=== PATIENT | male | born 1970 | race Hispanic/Latino ===

== ENCOUNTER 2017-11-21 18:40 | Inpatient (IN) | payer OTHER ==
[~2017-11-21] VITALS: Ht 182.9 cm; Wt 137.6 kg
[2017-11-21] MEDS ORDERED: SODIUM CHLORIDE 0.9% 100 ML IV ONE (19:19)
[2017-11-21 19:34] LABS: BASOPHILS % (AUTO) 0.8 % (0.0-5.0); EOSINOPHILS % (AUTO) 1.4 % (0.0-8.0); LYMPHOCYTES % (AUTO) 14.8 % (21.0-51.0); MEAN CORPUSCULAR HEMOGLOBIN 32.8 pg (27.0-33.0); MEAN CORPUSCULAR HGB CONC 35.7 g/dL (32.0-36.0); MEAN CORPUSCULAR VOLUME 91.8 fL (79-99); MONOCYTES % (AUTO) 6.7 % (3.0-13.0); NEUTROPHILS % (AUTO) 76.3 % (40.0-77.0); NUCLEATED RED BLOOD CELLS 0.1 % (0.0-0.19); PLATELET COUNT (AUTO) 75 K/uL (130-400); RED BLOOD CELL COUNT(AUTO) 4.47 MIL/uL (4.50-6.20); RED CELL DISTRIBUTION WIDTH 14.2 % (11.0-15.5); WHITE BLOOD COUNT (AUTO) 6.6 K/uL (4.8-10.8)
[2017-11-21 19:43] LABS: INR 1.08 (0.85-1.15); PARTIAL THROMBOPLASTIN TIME 27.8 SEC (26.3-35.5); PROTHROMBIN TIME 11.3 SEC (9.6-11.6)
[2017-11-21 19:45] LABS: CREATININE 1.1 mg/dL (0.5-1.5); POTASSIUM 4.1 mmol/L (3.5-5.1)
[2017-11-21 19:50] LABS: ALBUMIN 3.1 g/dL (3.5-5.0); BILIRUBIN,TOTAL 1.6 mg/dL (0.2-1.0); TOTAL PROTEIN, SERUM 7.5 g/dL (6.0-8.3)
[2017-11-21] MEDS ORDERED: OCTREOTIDE ACETATE 1,000 MCG in SODIUM CHLORIDE 0.9% 95 ML IV SCH ×2 (20:00→23:30)
[2017-11-21 22:21] LABS: BILIRUBIN,URINE Negative (NEGATIVE); COLOR,URINE Yellow (YELLOW); GLUCOSE, URINE (UA) Negative (NEGATIVE); KETONES,URINE Negative (NEGATIVE); LEUKOCYTE ESTERASE ,URINE Negative (NEGATIVE); NITRATE,URINE Negative (NEGATIVE); OCCULT BLOOD,URINE Negative (NEGATIVE); PROTEIN,URINE Negative (NEGATIVE); UROBILINOGEN,URINE 0.2 mg/dL (0.2-1.0)
[2017-11-21 22:23] LABS: APPEARANCE,URINE CLEAR (CLEAR)
[2017-11-21 22:31] LABS: AMPHET/METH SCREEN,URINE NEGATIVE (NEGATIVE); BARBITURATE SCREEN, URINE NEGATIVE (NEGATIVE); BENZODIAZEPINES SCREEN,URINE NEGATIVE (NEGATIVE); CANNABINOID SCREEN,URINE NEGATIVE (NEGATIVE); COCAINE SCREEN,URINE NEGATIVE (NEGATIVE); OPIATE SCREEN,URINE NEGATIVE (NEGATIVE); PHENCYCLIDINE SCREEN,URINE NEGATIVE (NEGATIVE)
[2017-11-21 23:15] VITALS: BP 127/72
[2017-11-21] MEDS ORDERED: PANTOPRAZOLE SODIUM 80 MG in SODIUM CHLORIDE 0.9% 100 ML IV SCH (23:30)
[2017-11-21] MEDS ORDERED: LACTATED RINGERS 1000ML 1,000 ML IV ONE (23:35)
[2017-11-21] MEDS: PANTOPRAZOLE SODIUM 80 MG in NS 100ML IVP SCH (23:45)
[2017-11-22] VITALS (21 sets, daily range): BP systolic 104–140; BP diastolic 53–87
[2017-11-22] MEDS: PANTOPRAZOLE SODIUM 80 MG in NS 100ML IVP SCH ×2 (05:10→19:59)
[2017-11-22] MEDS: LACTATED RINGERS 1000ML 1,000 ML IV SCH ×3 (06:00→20:06)
[2017-11-22] MEDS ORDERED: ONDANSETRON HCL 4 MG/2 ML VIAL IVP PRN (06:00)
[2017-11-22 06:59] LABS: HEMATOCRIT 36.8 % (42-54); MEAN CORPUSCULAR HGB CONC 36.3 g/dL (32.0-36.0); MEAN CORPUSCULAR VOLUME 90.7 fL (79-99); PLATELET COUNT (AUTO) 66 K/uL (130-400); RED BLOOD CELL COUNT(AUTO) 4.06 MIL/uL (4.50-6.20); RED CELL DISTRIBUTION WIDTH 14.1 % (11.0-15.5); WHITE BLOOD COUNT (AUTO) 5.1 K/uL (4.8-10.8)
[2017-11-22 07:16] LABS: ALBUMIN 2.7 g/dL (3.5-5.0); BILIRUBIN,DIRECT 0.3 mg/dL (0.0-0.3); BILIRUBIN,TOTAL 1.1 mg/dL (0.2-1.0); CREATININE 0.8 mg/dL (0.5-1.5); TOTAL PROTEIN, SERUM 6.6 g/dL (6.0-8.3)
[2017-11-22 08:48] LABS: PLATELET MORPHOLOGY COMMENT DECREASED
[2017-11-22] MEDS ORDERED: AZITHROMYCIN 500MG+NS 250ML 250 ML IV SCH (11:02)
[2017-11-22] MEDS ORDERED: AZITHROMYCIN 500MG+NS 250ML 250 ML IV ONE (11:07)
[2017-11-22] MEDS ORDERED: MEPERIDINE-PF 50 MG/ML SYG ONE (13:25)
[2017-11-22] MEDS ORDERED: MIDAZOLAM HCL 1 MG/ML 2ML VIAL ONE (13:25)
[2017-11-22] MEDS ORDERED: COMPOUND IV REFRIGERATED 1 EACH IVSOLN MISC PRN (19:00)
[2017-11-22] MEDS: PROPRANOLOL HCL 10 MG TAB PO SCH (19:59)
[2017-11-22] MEDS: LACTULOSE 20 GM/30 ML UDCUP PO SCH (19:59)
[2017-11-23] MEDS: PROPRANOLOL HCL 10 MG TAB PO SCH ×3 (03:21→11:10)
[2017-11-23 03:51] VITALS: BP 136/80
[2017-11-23 06:39] LABS: HEMATOCRIT 33.6 % (42-54); MEAN CORPUSCULAR HEMOGLOBIN 33.2 pg (27.0-33.0); MEAN CORPUSCULAR VOLUME 92.3 fL (79-99); NUCLEATED RED BLOOD CELLS 0.1 % (0.0-0.19); PLATELET COUNT (AUTO) 68 K/uL (130-400); RED BLOOD CELL COUNT(AUTO) 3.64 MIL/uL (4.50-6.20); RED CELL DISTRIBUTION WIDTH 14.1 % (11.0-15.5)
[2017-11-23 06:49] LABS: CREATININE 0.8 mg/dL (0.5-1.5); MAGNESIUM 1.8 mg/dL (1.80-2.40); POTASSIUM 4.2 mmol/L (3.5-5.1)
[2017-11-23 07:00] VITALS: BP 115/69
[2017-11-23 07:03] LABS: INR 1.09 (0.85-1.15); PARTIAL THROMBOPLASTIN TIME 29.9 SEC (26.3-35.5); PROTHROMBIN TIME 11.4 SEC (9.6-11.6)
[2017-11-23] MEDS ORDERED: CEFTRIAXONE SODIUM 1 GM IVP SCH (09:00)
[2017-11-23] MEDS ORDERED: CEFTRIAXONE 1GM/D5W 50ML 50 ML IV SCH (09:00)
[2017-11-23] MEDS: LACTATED RINGERS 1000ML 1,000 ML IV SCH (09:03)
[2017-11-23] MEDS: LACTULOSE 20 GM/30 ML UDCUP PO SCH (09:03)
[2017-11-23] MEDS: PANTOPRAZOLE SODIUM 80 MG in NS 100ML IVP SCH (09:05)
[2017-11-23 11:00] VITALS: BP 128/72
[2017-11-23] MEDS ORDERED: PANTOPRAZOLE SODIUM 40 MG TABLET.DR PO ONE (11:02)
[2017-11-23 16:00] VITALS: BP 135/74
[2017-11-23] MEDS ORDERED: LACT PO (16:29)
[2017-11-23] MEDS ORDERED: PROP10TA72 PO (16:29)
[2017-11-23] MEDS ORDERED: PANT40TA PO (16:29)
== END 2017-11-23 18:27 | disposition home or self-care (01) | DRG 369 ==
LOC: EDH 18:40 → EDHIP 18:41 → OBSVTOIN 18:41 → 3CH 22:27
PROVIDERS: ADMIT Family Medicine; ATTEND Family Medicine
PROC: 06L38CZ Occlusion of Esophageal Vein with Extraluminal Device, Via Natural or Artificial Opening Endoscopic (ICD-10-PCS; principal; 2017-11-22)
DX: I85.01 Esophageal varices with bleeding (principal); D68.9 Coagulation defect, unspecified; K76.6 Portal hypertension; E66.01 Morbid (severe) obesity due to excess calories; Z68.41 Body mass index [BMI] 40.0-44.9, adult; D62 Acute posthemorrhagic anemia; B15.9 Hepatitis A without hepatic coma; K70.30 Alcoholic cirrhosis of liver without ascites; E11.9 Type 2 diabetes mellitus without complications; E86.0 Dehydration; I10 Essential (primary) hypertension; D73.1 Hypersplenism; K27.9 Peptic ulcer, site unspecified, unspecified as acute or chronic, without hemorrhage or perforation; K31.89 Other diseases of stomach and duodenum; K29.00 Acute gastritis without bleeding; F10.20 Alcohol dependence, uncomplicated; Z83.3 Family history of diabetes mellitus
CPT/HCPCS: 36415; 76700; 80048; 80053; 80076; 80305; 81003; 82140; 82270; 83735; 85025; 85027; 85610; 85730; 86850; 86900; 86901; 99152; A4218; C9113; J0456; J0696; J2175; J2250; J2354; J7120